=== PATIENT | male | born 1935 | race Caucasian/White ===

== ENCOUNTER 2017-09-15 06:01 | Observation (INO) | payer OTHER, MEDICARE ==
[~2017-09-15] VITALS: Ht 175.3 cm; Wt 99.8 kg
[~2017-09-15 06:01] MED LIST: AMOXIL500 MG PO; BACTRIM DS 8001 TAB PO; LOVASTATIN40 M1 PO; METOPROLOL SUC100 M2 PO; NEXIUM 40MG40 MG PO; NYSTATIN100000 U/2 TOP
--- NOTE | 2017-09-15 06:10 | ED CARDIAC/CP/PALPITATIONS ---
See Addendum History of Present Illness General Chief Complaint: Chest Pain Stated Complaint: "CP" Source: patient, family Exam Limitations: no limitations Vital Signs & Intake/Output Vital Signs & Intake/Output Vital Signs Date Time Temp Pulse Resp B/P B/P Pulse O2 O2 Flow FiO2 Mean Ox Delivery Rate 09/15 0649 97 Room Air 09/15 627 96.8 63 18 150/59 96 Room Air Allergies Coded Allergies: NO KNOWN ALLERGIES (05/06/11) Reconcile Medications Amoxicillin (Amoxil) 500 MG CAP 1 TAB PO BID CELLULITIIS Esomeprazole (Nexium) 40 MG CAP 1 CAP PO DAILY GI (Reported) Lovastatin 40 MG TAB 1 TAB PO DAILY CHOLESTEROL (Reported) with food Metoprolol Succinate (Metoprolol Succinate XL) [address] 1 TAB PO DAILY HEART (Reported) Nystatin 100,000 U/GM POW 1 WALT TOP BID YEAST INFECTION apply to affected area(s) Sulfamethoxazole/Trimethopri (Bactrim Ds 800 MG-160 MG) 1 TAB TAB 1 TAB PO BID ABSCESS Sulfamethoxazole/Trimethopri (Bactrim Ds 800 MG-160 MG) 1 TAB TAB 1 TAB PO BID CELLULITIS Triage Nurses Notes Reviewed? yes Onset: Gradual Duration: hour(s): Timing: recent history Location: central Radiation: no radiation Activities at Onset: rest Prior Chest Pain/Card Workup: angina Modifying Factors: Improves With: nitroglycerin. Nitro Today/Relief: complete relief Aspirin Today: no aspirin today Associated Symptoms: CHEST PAIN HPI: 82 yo gentleman h/o hyperlipidemia, also with nitro for possible angina, presents with intermittent 5/10 substernal chest pain that began yesterday evening. "I would take a few sprays of the nitro and the pain would go away for a few hours and then I'd have to take some more." He notes, at present, that he is chest pain free. He has no increased lower extremity swelling, diaphoresis, chills, shortness of breath, dizziness, syncopal symptoms. He is otherwise well. Past History Travel History Traveled to [place] past 21 day No Medical History Any Pertinent Medical History? see below for history Neurological: NONE EENT: NONE Cardiovascular: hyperlipidemia Respiratory: obstructive sleep apnea Gastrointestinal: GERD Hepatic: NONE Renal: NONE Musculoskeletal: NONE Psychiatric: NONE Endocrine: NONE Blood Disorders: NONE Cancer(s): NONE KILN MAINTENANCE/Reproductive: NONE Surgical History Surgical History: N Psychosocial History Who do you live with Spouse What is your primary language [place] Family History Hx Contributory? No Review of Systems Review of Systems Constitutional: Reports: no symptoms. EENTM: Reports: no symptoms. Respiratory: Reports: no symptoms. Cardiovascular: Reports: no symptoms. GI: Reports: no symptoms. Genitourinary: Reports: no symptoms. Musculoskeletal: Reports: no symptoms. Skin: Reports: no symptoms. Neurological/Psychological: Reports: no symptoms. Hematologic/Endocrine: Reports: no symptoms. Immunologic/Allergic: Reports: no symptoms. All Other Systems: Reviewed and Negative Physical Exam Physical Exam General Appearance: well developed/nourished, no apparent distress Head: atraumatic, normal appearance Eyes: Bilateral: normal appearance. Ears, Nose, Throat: normal pharynx, normal ENT inspection Neck: normal inspection, supple, full range of motion Respiratory: normal breath sounds, chest non-tender, no respiratory distress, quiet respiration, lungs clear Cardiovascular: regular rate/rhythm Gastrointestinal: normal bowel sounds, soft, non-tender Back: normal inspection, normal range of motion Extremities: normal inspection, normal capillary refill, normal range of motion Neurologic/Psych: no motor/sensory deficits, awake, alert, oriented x 3 Skin: intact, normal color, warm/dry Core Measures ACS in differential dx? No CVA/TIA Diagnosis No Sepsis Present: No Sepsis Focused Exam Completed? No Progress Differential Diagnosis: AMI, unstable angina Plan of Care: Orders Procedure Date/time Status TROPONIN LEVEL 09/15 0610 Active PARTIAL THROMBOPLASTIN TIME 09/15 06 Active PROTHROMBIN TIME 09/15 0610 Active D-DIMER 09/15 06 Active COMPREHENSIVE METABOLIC PANEL 09/15 0610 Active CBC WITHOUT DIFFERENTIAL 09/15 0610 Active B-TYPE NATRIURETIC PEP (BNP) 09/15 06 Active EKG 09/15 0603 Active Laboratory Tests 09/15/17 0635: Sodium Pending, Potassium Pending, Chloride Pending, Carbon Dioxide Pending, Anion Gap Pending, BUN Pending, Creatinine Pending, BUN/Creatinine Ratio Pending , Glucose Pending, Calcium Pending, Total Bilirubin Pending, AST Pending, ALT Pending, Alkaline Phosphatase Pending, Troponin I Pending, Twe-P-Xjtrvtbxnfl Pept Pending, Total Protein Pending, Albumin Pending, Globulin Pending, Albumin/ Globulin Ratio Pending, PT Pending, INR Pending, APTT Pending, D-Dimer High Sensitivty Pending, CBC w Diff Pending, WBC Pending, RBC Pending, Hgb Pending, Hct Pending, MCV Pending, MCH Pending, RDW Pending, Plt Count Pending, MPV Pending, PUBS MCHC Pending Diagnostic Imaging: Viewed by Me: Radiology Read. Discussed w/RAD: Radiology Read. Initial ED EKst degree av block... no acute change from prior. Hand-Off Endorsed To: Daniel Iraheta DO Endorsed Time: 0700 Pending: labs, Xray Departure Departure Disposition: STILL A PATIENT Condition: Stable Clinical Impression Primary Impression: Chest pain Referrals: Alvarenga Dipak BELLO (PCP/Family) Departure Forms: Customer Survey General Discharge Information Comments 09/15/17, 7am... pt is chest pain free in ED. non acute ekg... labs pending... pt signed out to dr. iraheta. Critical Care Note Critical Care Note Critical Care Time: non-applicable
[2017-09-15 06:54] LABS: ABSOLUTE BASOPHIL COUNT 0 /CUMM (0.0-0.2); ABSOLUTE EOSINOPHIL COUNT 0.2 /CUMM (0.0-0.7); ABSOLUTE GRANULOCYTE CT 6.1 /CUMM (1.4-6.5); ABSOLUTE LYMPH COUNT 1.1 /CUMM (1.2-3.4); ABSOLUTE MONOCYTE COUNT 0.5 /CUMM (0.10-0.60); BASOPHIL % 0.3 % (0.0-2.0); EOSINOPHIL % 2.1 % (0-5); GRANULOCYTE % 76.8 % (42.2-75.2); MEAN CORPUSCULAR HGB 31.5 PG (27.0-31.0); MEAN CORPUSCULAR HGB CONC 33.5 G/DL (33.0-37.0); MEAN CORPUSCULAR VOLUME 94.1 FL (80.0-94.0); MEAN PLATELET VOLUME 8.1 FL (7.4-10.4); PLATELET COUNT 159 /CUMM (130-400); RBC DISTRIBUTION WIDTH 13.3 % (11.5-14.5); RED BLOOD CELL CT 4.57 /CUMM (4.70-6.10); WHITE BLOOD CELL COUNT 7.9 /CUMM (4.8-10.8)
--- NOTE | 2017-09-15 06:54 | RADIOLOGY REPORT ---
EXAMINATION: XR PORTABLE CHEST CLINICAL INFORMATION: Dyspnea. Chest pain. COMPARISON: 05/06/2011 TECHNIQUE: Portable frontal view of the chest was obtained. FINDINGS: The lungs are well expanded. There is no consolidation, edema, or effusion. No pneumothorax. The cardiomediastinal silhouette is unchanged, with a tortuous and calcified aorta. Scoliotic curvature of the spine. IMPRESSION: No acute pulmonary findings.
[2017-09-15 06:59] LABS: PT 11.4 SEC (9.4-12.5); PTT 31 SEC (25-37)
[2017-09-15] MEDS ORDERED: ASPIRIN EC81 M1 PO (08:11)
--- NOTE | 2017-09-15 12:02 | History & Physical ---
Bryce BELLO,Shauna 09/15/17 1202: General Information and HPI MD Statement: I have seen and personally examined ISIS CANTU and documented this H&P. The patient is a 82 year old M who presented with a patient stated chief complaint of [chest pain]. Source of Information: patient, family, old records Exam Limitations: unable to give history History of Present Illness: This is a 82 yo gentleman with PMH of CAD s/p RCA stent (around 2001 per family) , GERD, HTN, HLD, TARA not on CPAP, who comes in with CC of chest pain. Pt states that around 9:30 pm lastnight when he was getting into bed he experienced an episode of chest pain. He describes the pain in a band like distribution across his chest under his sternum. At its peak the pain is a 8/10 squeezing sensation that does not radiate to his jaw or left hand. He states the pain is neither positional or exertional. He only noticed it while laying in bed. It is not associated with palpitaitons or SOB. He took two sprays of nitro and pain remitted. Subsequently, he dozed off and woke up again at 11:30pm with same pain which remitted with nitro. After sleeping the sensation woke him up for a third time around 1:30 am and decided to bring pt to hospital as she was concerned about frequency of chest pain. He has had similar episodes of cp before that remitted with nitro. They usually occur every few months or so and are not associated with exertion. He usually takes nitro with complete resolution of episode. Denies DODSON,Dizziness, N/V/D/palpitations, SOB, abd pain, hematochezia, or melena. Does endorse chest pain, GERD and constipation. He was seen at in 2010 for an episode of CP. At that time he had IV dipyramidole stress test which showed baseline EKG changes with out evidence of stress induced myocardial ischemia. Pt follows Dr. Perez outpatient. He currently takes ASA 81, Lovastatin, Metop succ 100 daily and is compliant with regimen. He has remote hx of smoking (1.5 ppd for 30 yrs but quit 30 yrs ago), drinks 2 oz of Cas Mckeon nightly without hx of etoh withdrawl and denies any IVDA Allergies/Medications Allergies: Coded Allergies: NO KNOWN ALLERGIES (05/06/11) Home Med list Aspirin (Ecotrin*) 81 MG TABLET.DR 1 TAB PO DAILY HEART HEALTH (Reported) Lovastatin 40 MG TABLET 1 TAB PO DAILY CHOLESTEROL (Reported) with food Metoprolol Succinate 100 MG TAB.ER.24H 1 TAB PO DAILY HEART (Reported) Compliance With Home Meds: GOOD Past History Travel History Traveled to [place] past 21 day No Medical History Neurological: NONE EENT: NONE Cardiovascular: hyperlipidemia, myocardial infarction Respiratory: obstructive sleep apnea Gastrointestinal: GERD Hepatic: NONE Renal: NONE Musculoskeletal: NONE Psychiatric: NONE Endocrine: NONE Blood Disorders: NONE Cancer(s): NONE [employer]ION/Reproductive: NONE Surgical History Surgical History: N Past Family/Social History Psychosocial History ETOH Use: denies use Illicit Drug Use: denies illicit drug use Review of Systems Review of Systems Constitutional: Reports: see HPI. Exam & Diagnostic Data Last 24 Hrs of Vital Signs/I&O Vital Signs Date Time Temp Pulse Resp B/P B/P Pulse O2 O2 Flow FiO2 Mean Ox Delivery Rate 09/15 1434 98.0 60 18 170/80 97 Room Air 09/15 1432 98.0 60 18 170/80 09/15 1354 97 Room Air 09/15 1341 97.6 59 18 184/81 97 Room Air 09/15 1205 98.3 60 18 172/75 97 09/15 0934 97.0 55 18 181/81 98 Room Air 09/15 0818 97.1 57 16 177/75 97 Room Air 09/15 0649 97 Room Air 09/15 0628 96.8 63 18 150/59 96 Room Air Intake & Output 09/15 1600 09/15 0800 09/15 0000 Intake Total 720 0 Output Total Balance 720 0 Intake, Oral 720 0 Patient 99.79 kg 99.79 kg Weight Physical Exam General Appearance Alert, Oriented X3, Cooperative, No Acute Distress Skin No Significant Lesion HEENT Atraumatic, EOMI, Mucous Membr. moist/pink Neck Supple, No JVD Cardiovascular Normal S1, Normal S2, No Murmurs, bradycardic Lungs Normal Air Movement Abdomen Soft, No Tenderness, + bs; obese Neurological Normal Speech, Sensation Intact, Cranial Nerves 3-12 NL Extremities No Edema Last 24 Hrs of Labs/Elton: Laboratory Tests 09/15/17 1332: Troponin I 0.10 09/15/17 0635: Anion Gap 10, Estimated GFR > 60, BUN/Creatinine Ratio 23.3, Glucose 128 H, Calcium 8.7, Total Bilirubin 0.5, AST 47, ALT 53, Alkaline Phosphatase 209 H, Troponin I 0.07, Hul-V-Akdivyopzix Pept 368 H, Total Protein 6.5, Albumin 3.6, Globulin 2.9, Albumin/Globulin Ratio 1.2, PT 11.4, INR 1.09, APTT 31, D-Dimer High Sensitivty < 200, CBC w Diff NO MAN DIFF REQ, RBC 4.57 L, MCV 94.1 H, MCH 31.5 H, RDW 13.3, MPV 8.1, Gran % 76.8 H, Lymphocytes % 14.1 L, Monocytes % 6.7, Eosinophils % 2.1, Basophils % 0.3, Absolute Granulocytes 6.1, Absolute Lymphocytes 1.1 L, Absolute Monocytes 0.5, Absolute Eosinophils 0.2, Absolute Basophils 0, PUBS MCHC 33.5 Assessment/Plan Assessment: ASSESSMENT: This is a 82 yo gentleman with PMH of CAD s/p RCA stent (around 2001 per family), GERD, HTN, HLD, TARA not on CPAP, who comes in with CC of atypical chest pain that remits with nitro. His FRANKY score is 3 (+ age> 65, known CAD, ASA use) giving him 13% risk of 14 day mortality. Pt admitted to [facility] for ACS rule out. EKG shows: NSR with rate 63 and first degree AV block. Notably, lateral leads show evidence of Q waves and poor R wave progression. aVL has flipped T wave. --- PLAN: 1.CAD/Chest pain: Pt has hx of CAD s/p RCA stent, but stress test in 2010 negative for stress induced myocardial ischemia. His EKG today does show evidence of old infarct and aVL does show flipped T-wave. His CP does remit with nitro and his presentation is concerning for intermediate risk of ACS (EKG with Qwv, >70 yo, chest pain with nml bio markers). * EKG trop now * EKG trop 7:30 * Con't home statin * nitro paste q6 prn chest pain * Appreciate cardiology recs * Con't Beta marlen (See below) * Morphine on for pain * O2 to maintain sats > 92% 2. First degree AV block: EKG showed evidence of 1st degree heart block which seems new compared to his old 2011 EKG. He takes metoprolol at home which is AV blocking agent. * Re-assess BB 3. Hypertension: Pt is only on Metop succinate 100mg daily at home. His BP up to 180 systolic in ED. After speaking with attending it was decided that pt would benefit from beta marlen for CAD but that it would do little for his HTN. As such, will switch his long acting beta marlen to short acting into two divided doses and add ACEi to his regimen. * Switched Metrop succ 100mg bid to Metop tartrate 50mg BID. He will need re- eval of his beta marlen regimen prior to d/c * Started pt on Lisinopril 10mg daily. * Monitor renal function given start of ACEi * Monitor pt BP on new regimen 4. GERD: * Con't home PPI FC Chem dvt ppx Heart Healthy diet. As Ranked By This Provider Problem List: 1. CHEST PAIN TO R/O ACS/UA/IHD 2. GERD Observation Initial Note - I have personally examined ISIS CANTU on 09/15/17 at 1621. The disposition of ISIS CANTU is uncertain at this time and before a determination can be made, he requires a period of observation for the following reasons [ chest pain rule out] Core Measures/Misc (05/18) Acute Coronary Syndrome ACS Diagnosis: No Congestive Heart Failure Congestive Heart Failure Diagnosis No Cerebrovascular Accident CVA/TIA Diagnosis: No VTE (View Protocol) VTE Risk Factors Acute Medical Illness No Mechanical VTE Prophylaxis d/t N/A MechProphylax Ordered No VTE Pharm Prophylaxis d/t NA PharmProphylax ordered Sepsis (View protocol) Sepsis Present: No Jhonathan Spear MD 09/15/17 1851: Attending Review Statement Attending Statement Attending MD Statement: examined this patient, discuss w/resident/PA/BAG WORKER, agreed w/resident/PA/BAG WORKER, discussed with family, reviewed EMR data (avail), discussed with nursing, reviewed images, amended to note Attending Assessment/Plan: Agree with house staff noted above. 82-year-old male with history of CAD, status post RCA stent presenting with chest discomfort which has been intermittent over the past few days. Review of systems: No fever. No chills. No rash. No tremor. All other systems were reviewed, and were noted to be negative. Physical examination: Gen: The patient is in no acute distress HEENT: Normal nose, ears, and oropharynx. Pupils equal bilaterally. Conjunctiva normal. Neck: Supple with no JVD, no masses, and no thyromegaly Lungs: Clear to auscultation with normal respiratory effort Heart: RRR, S1, S2, no murmurs. No peripheral edema, 2+ pulses in the lower extremities bilaterally Abdomen: Soft, nontender, no masses. No hepatomegaly. No splenomegaly Extremities: No clubbing or cyanosis. Normal muscle strength in the upper and lower extremities Skin: Normal skin turgor with no skin ulcers or lesions noted. Neuro: Cranial nerves intact. Sensation intact Psych: Alert and oriented 3 with appropriate affect EKG tracing is independently reviewed, and reveals normal sinus rhythm at 62, left axis deviation, left internal hypertrophy, septal infarct age undetermined Chest x-ray: The lungs are well expanded. There is no consolidation, edema, or effusion. No pneumothorax. The cardiomediastinal silhouette is unchanged, with a tortuous and calcified aorta. Scoliotic curvature of the spine. Assessment: 1. History of CAD 2. Hypertension, uncontrolled 3. Chest pain, possible acute coronary syndrome Recommendations: * Monitor on telemetry. * Check serial troponin * Continue metoprolol * Continue aspirin * Add lisinopril for additional blood pressure control * Nitroglycerin paste * Sublingual nitroglycerin p.r.n. * NPO after midnight for possible nuclear stress test versus cardiac catheterization
[2017-09-15 22:01] VITALS: BP 160/90
--- NOTE | 2017-09-16 03:20 | Event Note ---
Event Note Event Note: Patient continued having chest pain not being releived with nitro and morphine. Repeat EKG done at 2:30AM showing ST depressions Stool guiac done - negative Dr. Spear made aware of situation Patient started on IV heparin and gave morphine for pain Patient is currently NPO for possible cath in AM Stat Trop level pending (previous trops trending up with last at 0.15)
[2017-09-16 06:41] VITALS: BP 152/76
--- NOTE | 2017-09-16 07:39 | Discharge Summary ---
Visit Information Visit Dates Admission Date: 09/15/17 Discharge Date: 09/16/2017 Hospital Course Course Attending Physician: Dr. Spear Primary Care Physician: Dipak Alvarenga MD Hospital Course: This is a 82 yo gentleman past medical history significant for CAD s/p RCA stent (around 2001 per family), GERD, HTN, HLD, TARA not on CPAP, who presented to the hospital with chief complaint of of atypical chest pain that remitted with nitro. EKG on admission showed: NSR with rate 63 and first degree AV block. Notably, lateral leads showed evidence of Q waves and poor R wave progression. aVL had flipped T wave. The following problems were addressed during the course of his hospital stay: #CAD/Chest pain: The patient has history of of CAD s/p RCA stent, but stress test in 2010 was reported to be negative for stress induced myocardial ischemia. 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 The patient was monitored on telemetry. Troponins trended up 0.1> 0.15>0.14> 0.36. EKG revealed ST depression in lead 1, aVL, V2V6.He was started on IV heparin. He was maintained on statin, nitro,beta marlen. He also received morphine for chest pain. This morning, he still reports chest pain however improved. He was seen by attending reports analyst who decided to transfer the patient to the hospital for cardiac catheterization, he also wants to continue IV heparin upon discharge while the patient is being transferred and on route to [facility]. #First degree AV block: EKG showed evidence of 1st degree heart block which seemed new compared to his old 2011 EKG. he was monitored on telemetry closely. His home medication of metoprolol succinate 100 mg daily was changed to metoprolol titrate 50 mg twice a day. #Hypertension: The patient was only on metoprolol succinate 100mg daily at home. On admission, his blood pressure was elevated to 180 systolic in ED. After speaking with attending it was decided that pt would benefit from beta marlen for CAD but that it would do little for his HTN. As such, Laura H his long acting beta marlen to short acting into two divided doses and add ACEi to his regimen.He was started on Lisinopril 10mg daily. Needs close monitoring of renal function as he was started on ACEi. #GERD: We continued home PPI #DVT prophylaxis: On IV heparin #Patient is full code. Allergies: Coded Allergies: NO KNOWN ALLERGIES (05/06/11) Pertinent Lab Results: Laboratory Tests 09/16 09/16 09/16 0926 0830 0632 Chemistry Sodium (137 - 145 mmol/L) 144 Potassium (3.5 - 5.1 mmol/L) 4.4 Chloride (98 - 107 mmol/L) 103 Carbon Dioxide (22 - 30 mmol/L) 30 Anion Gap (5 - 16) 11 BUN (9 - 20 mg/dL) 19 Creatinine (0.7 - 1.2 mg/dL) 0.8 Estimated GFR (>60 ml/min) > 60 BUN/Creatinine Ratio (7 - 25 %) 23.8 Troponin I (<0.11 ng/ml) Cancelled Cancelled 0.36 *H Coagulation APTT (25 - 37 SEC) 48 H Hematology CBC w Diff NO MAN DIFF REQ WBC (4.8 - 10.8 /CUMM) 11.7 H RBC (4.70 - 6.10 /CUMM) 4.61 L Hgb (14.0 - 18.0 G/DL) 14.6 Hct (42 - 52 %) 43.7 MCV (80.0 - 94.0 FL) 95.0 H MCH (27.0 - 31.0 PG) 31.6 H RDW (11.5 - 14.5 %) 13.8 Plt Count (130 - 400 /CUMM) 192 MPV (7.4 - 10.4 FL) 8.6 Gran % (42.2 - 75.2 %) 79.7 H Lymphocytes % (20.5 - 51.1 %) 13.4 L Monocytes % (1.7 - 9.3 %) 6.0 Eosinophils % (0 - 5 %) 0.6 Basophils % (0.0 - 2.0 %) 0.3 Absolute Granulocytes (1.4 - 6.5 /CUMM) 9.3 H Absolute Lymphocytes (1.2 - 3.4 /CUMM) 1.6 Absolute Monocytes (0.10 - 0.60 /CUMM) 0.7 H Absolute Eosinophils (0.0 - 0.7 /CUMM) 0.1 Absolute Basophils (0.0 - 0.2 /CUMM) 0 PUBS MCHC (33.0 - 37.0 G/DL) 33.3 09/16 09/16 09/15 09/15 0245 0212 [id number] Chemistry Troponin I (<0.11 ng/ml) 0.14 *H Cancelled 0.15 *H 0.10 09/15 0635 Chemistry Sodium (137 - 145 mmol/L) 144 Potassium (3.5 - 5.1 mmol/L) 4.3 Chloride (98 - 107 mmol/L) 106 Carbon Dioxide (22 - 30 mmol/L) 27 Anion Gap (5 - 16) 10 BUN (9 - 20 mg/dL) 21 H Creatinine (0.7 - 1.2 mg/dL) 0.9 Estimated GFR (>60 ml/min) > 60 BUN/Creatinine Ratio (7 - 25 %) 23.3 Glucose (65 - 99 mg/dL) 128 H Calcium (8.4 - 10.2 mg/dL) 8.7 Total Bilirubin (0.2 - 1.3 mg/dL) 0.5 AST (17 - 59 U/L) 47 ALT (21 - 72 U/L) 53 Alkaline Phosphatase (< 127 U/L) 209 H Troponin I (<0.11 ng/ml) 0.07 [id number] Pept (<125 pg/mL) 368 H Total Protein (6.3 - 8.2 g/dL) 6.5 Albumin (3.5 - 5.0 g/dL) 3.6 Globulin (1.9 - 4.2 gm/dL) 2.9 Albumin/Globulin Ratio (1.1 - 2.2 %) 1.2 Coagulation PT (9.4 - 12.5 SEC) 11.4 INR (0.90 - 1.17) 1.09 APTT (25 - 37 SEC) 31 D-Dimer High Sensitivty (0 - 243 ng/ml) < 200 Hematology CBC w Diff NO MAN DIFF REQ WBC (4.8 - 10.8 /CUMM) 7.9 RBC (4.70 - 6.10 /CUMM) 4.57 L Hgb (14.0 - 18.0 G/DL) 14.4 Hct (42 - 52 %) 43.0 MCV (80.0 - 94.0 FL) 94.1 H MCH (27.0 - 31.0 PG) 31.5 H RDW (11.5 - 14.5 %) 13.3 Plt Count (130 - 400 /CUMM) 159 MPV (7.4 - 10.4 FL) 8.1 Gran % (42.2 - 75.2 %) 76.8 H Lymphocytes % (20.5 - 51.1 %) 14.1 L Monocytes % (1.7 - 9.3 %) 6.7 Eosinophils % (0 - 5 %) 2.1 Basophils % (0.0 - 2.0 %) 0.3 Absolute Granulocytes (1.4 - 6.5 /CUMM) 6.1 Absolute Lymphocytes (1.2 - 3.4 /CUMM) 1.1 L Absolute Monocytes (0.10 - 0.60 /CUMM) 0.5 Absolute Eosinophils (0.0 - 0.7 /CUMM) 0.2 Absolute Basophils (0.0 - 0.2 /CUMM) 0 PUBS MCHC (33.0 - 37.0 G/DL) 33.5 Disposition Summary Disposition Principal Diagnosis: NSTEMI Additional Diagnosis: 1st degree AV block HTN Discharge Disposition: other general hospital Discharge Instructions General Discharge Information Code Status: Full Code Patient's Diet: NPO Patient's Activity: As tolerated Follow-Up Instructions/Appts: -Please follow-up with your PCP within a week of discharge. -Please follow-up with your reports analyst, Dr. Perez regarding a week of discharge. -Please return to the hospital if your symptoms not improve/worsen. Medications at Discharge Discharge Medications: Stop taking the following medications: Lovastatin (Lovastatin) 40 MG TABLET ORAL DAILY Metoprolol Succinate (Metoprolol Succinate) 100 MG TAB.ER.24H ORAL DAILY Continue taking these medications: Aspirin (Ecotrin*) 81 MG TABLET.DR 1 Tablet ORAL DAILY Comments: Last Taken: 09/16/17 Time: 11AM Start taking the following new medications: Heparin Sod,Porcine/0.9 % NaCl (Heparin 2,500 Unit/500 Ml-Ns) 2,500 UNIT/500 ML (5 UNIT/ML) IV.SOLN 0 INTRAVEN SEE INSTRUCTIONS Qty = 1 No Refills Instructions: Per protocol PTT REPEAT BOLUS STOP CHANGE <45 60U/KG 0 INCREASE 4 U/KG/HR 45-60 30U/KG 0 INCREASE 2 U/KG/HR 61-90 0 0 NO CHANGE 91-100 0 0 DECREASE 2 U/KG/HR >100 0 60 DECREASE 4U/KG/HR Atorvastatin Calcium (Atorvastatin Calcium) 80 MG TABLET 1 Tablet ORAL 5 PM Qty = 30 No Refills Comments: Last Taken: 09/16/17 Time: 6AM Nitroglycerin (Nitro-Bid) 2 % OINT...G. 0.5 Gram On the skin EVERY SIX HOURS Qty = 1 No Refills Comments: Last Taken: 09/16/17 Time: 11AM Metoprolol Tartrate (Metoprolol Tartrate) 50 MG TABLET 1 Tablet ORAL TWICE DAILY Qty = 60 No Refills Comments: Last Taken: 09/16/17 Time: 11AM Lisinopril (Lisinopril) 10 MG TABLET 1 Milligram ORAL DAILY Qty = 30 No Refills Comments: Last Taken: 09/16/17 Time: 11AM Omeprazole (Omeprazole) 20 MG CAPSULE.DR 1 Tablet ORAL DAILY BEFORE BREAKFAST as needed for GERD Qty = 30 No Refills Comments: NOT GIVEN IN HOSPITAL Copies To: Rachel Perez MD
[2017-09-16 07:44] LABS: ABSOLUTE BASOPHIL COUNT 0 /CUMM (0.0-0.2); ABSOLUTE EOSINOPHIL COUNT 0.1 /CUMM (0.0-0.7); ABSOLUTE GRANULOCYTE CT 9.3 /CUMM (1.4-6.5); ABSOLUTE LYMPH COUNT 1.6 /CUMM (1.2-3.4); ABSOLUTE MONOCYTE COUNT 0.7 /CUMM (0.10-0.60); BASOPHIL % 0.3 % (0.0-2.0); EOSINOPHIL % 0.6 % (0-5); GRANULOCYTE % 79.7 % (42.2-75.2); HEMATOCRIT 43.7 % (42-52); MEAN CORPUSCULAR HGB 31.6 PG (27.0-31.0); MEAN CORPUSCULAR HGB CONC 33.3 G/DL (33.0-37.0); MEAN PLATELET VOLUME 8.6 FL (7.4-10.4); PLATELET COUNT 192 /CUMM (130-400); RBC DISTRIBUTION WIDTH 13.8 % (11.5-14.5); RED BLOOD CELL CT 4.61 /CUMM (4.70-6.10); WHITE BLOOD CELL COUNT 11.7 /CUMM (4.8-10.8)
[2017-09-16 07:57] LABS: PTT 48 SEC (25-37)
--- NOTE | 2017-09-16 08:14 | PN- Housestaff ---
Subjective Follow-up For: CAD/Chest pain First degree AV block Tele-Events Since Last Visit: SR, SB, 1st AVB Subjective: The patient was seen and examined. He reports that his chest pain has much improved compared to last night. Now is 10, substernal, nonradiating. he denies any dizziness, lightheadedness, shortness of breath, nausea, vomiting, abdominal pain, urinary symptoms. Patient's is present at bedside. The patient was evaluated by early in the morning, arrangements being made by Dr. Spear to transfer for cardiac cath to [facility]. Review of Systems Constitutional: Reports: see HPI. Objective Last 24 Hrs of Vital Signs/I&O Vital Signs Date Time Temp Pulse Resp B/P B/P Pulse O2 O2 Flow FiO2 Mean Ox Delivery Rate 09/16 1116 66 142/68 09/16 1111 66 142/68 09/16 1110 66 142/68 09/16 0800 97 Nasal 2.0L Cannula 09/16 0641 97.7 63 18 152/76 96 Room Air 09/16 0000 Nasal Cannula 09/15 2201 97.9 62 18 160/90 97 Intake & Output 09/16 1600 09/16 0800 09/16 0000 Intake Total 60 200 Output Total 425 Balance -365 200 Intake, Oral 60 200 Output, Urine 425 Patient 220 lb Weight Physical Exam General Appearance: Alert, Oriented X3, Cooperative, No Acute Distress Skin: No Rashes, No Breakdown, No Significant Lesion HEENT: Atraumatic, PERRLA, EOMI, Mucous Membr. moist/pink Neck: Supple, No JVD, No thryomegaly, +2 Carotid Pulse wo Bruit, No LAD Lymphatic: Cervical nl Cardiovascular: Regular Rate, Normal S1, Normal S2, No Murmurs, Gallops, Rubs Lungs: Clear to Auscultation, Normal Air Movement Abdomen: Normal Bowel Sounds, Soft, No Tenderness, No Hepatospenomegaly, No Masses Neurological: Normal Speech, Strength at 5/5 X4 Ext, Normal Tone, Sensation Intact Extremities: LE edema BL Vascular: Normal Pulses, Pulses Symmetrical Current Medications: Current Medications Sig/Nadir Start time Last Medication Dose Route Stop Time Status Admin Acetaminophen 650 MG Q6P PRN 09/15 1300 AC 09/16 PO 0637 Acetaminophen 1,000 MG Q6P PRN 09/15 1300 AC 09/16 IV 0054 Aspirin Buffered 81 MG DAILY 09/16 1000 AC PO Atorvastatin Calcium 80 MG 1700 09/16 0300 AC 09/16 PO 0618 Atorvastatin Calcium 10 MG 1700 09/15 1700 AC 09/15 PO 1735 Enoxaparin Sodium 40 MG DAILY 09/16 1000 CAN SC Heparin Sodium 3,000 UNIT ONCE ONE 09/16 1400 AC (Porcine) IV 09/16 1401 Heparin Sodium 25,000 UNIT Q24H 09/16 0300 AC 09/16 (Porcine) IV 0359 Sodium Chloride 500 ML Lisinopril 10 MG DAILY 09/15 1330 AC 09/15 PO 1432 Metoprolol Succinate 100 MG DAILY 09/15 1153 DC PO Metoprolol Tartrate 50 MG BID 09/15 1329 AC 09/15 PO 2308 Morphine Sulfate 2 MG ONCE ONE 09/16 0300 DC 09/16 IV 09/16 0301 0323 Morphine Sulfate 2 MG Q4P PRN 09/15 1300 AC IV Nitroglycerin 0.4 MG Q6 09/15 2359 CAN SL Nitroglycerin 0.5 GM Q6 09/15 2359 AC 09/16 TOP 0619 Nitroglycerin 0.5 GM Q6 09/15 1800 CAN TOP Nitroglycerin 1 GM ONCE ONE 09/15 1615 DC 09/15 TOP 09/15 1616 1605 Nitroglycerin 0 .STK-MED ONE 09/15 1602 DC TOP Nitroglycerin 0.4 MG ONCE ONE 09/15 1545 DC 09/15 SL 09/15 1546 1548 Nitroglycerin 0.4 MG Q6 PRN 09/15 1315 DC SL Omeprazole 20 MG DAILY AC PRN 09/15 1315 AC PO Last 24 Hrs of Lab/Elton Results Last 24 Hrs of Labs/Mics: Laboratory Tests 09/16/17 1400: APTT Cancelled 09/16/17 1400: APTT Cancelled 09/16/17 0926: Troponin I Cancelled 09/16/17 0830: Troponin I Cancelled 09/16/17 0632: Anion Gap 11, Estimated GFR > 60, BUN/Creatinine Ratio 23.8, Troponin I 0.36 *H, APTT 48 H, CBC w Diff NO MAN DIFF REQ, RBC 4.61 L, MCV 95.0 H, MCH 31.6 H, RDW 13.8, MPV 8.6, Gran % 79.7 H, Lymphocytes % 13.4 L, Monocytes % 6.0, Eosinophils % 0.6, Basophils % 0.3, Absolute Granulocytes 9.3 H, Absolute Lymphocytes 1.6, Absolute Monocytes 0.7 H, Absolute Eosinophils 0.1, Absolute Basophils 0, PUBS MCHC 33.3 09/16/17 0245: Troponin I 0.14 *H 09/16/17 0217: Troponin I Cancelled 09/15/17 2245: Troponin I 0.15 *H Assessment/Plan Assessment: This is a 82 yo gentleman past medical history significant for CAD s/p RCA stent (around 2001 per family), GERD, HTN, HLD, TARA not on CPAP, who presented to the hospital with chief complaint of of atypical chest pain that remitted with nitro. EKG on admission showed: NSR with rate 63 and first degree AV block. Notably, lateral leads showed evidence of Q waves and poor R wave progression. aVL had flipped T wave. Impression/plan: #CAD/Chest pain: The patient has history of of CAD s/p RCA stent, but stress test in 2010 was reported to be negative for stress induced myocardial ischemia. 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 * The patient was monitored on telemetry. * Troponins trended up 0.1> 0.15>0.14> 0.36. EKG revealed ST depression in lead 1, aVL, V2V6. * He was started on IV heparin. * He was maintained on statin, nitro,beta marlen. He also received morphine for chest pain. This morning, he still reports chest pain however improved. * He was seen by attending compressor repairer who decided to transfer the patient to the hospital for cardiac catheterization, he also wants to continue IV heparin upon discharge while the patient is being transferred and on route to [facility]. #First degree AV block: * EKG showed evidence of 1st degree heart block which seemed new compared to his old 2011 EKG. * SB w/occasional AVB noted on piece marker small arms * His home medication of metoprolol succinate 100 mg daily was changed to metoprolol titrate 50 mg twice a day. #Hypertension: The patient was only on metoprolol succinate 100mg daily at home. On admission, his blood pressure was elevated to 180 systolic in ED. After speaking with attending it was decided that pt would benefit from beta marlen for CAD but that it would do little for his HTN. As such, long acting beta marlen was changed to short acting into two divided doses and ACEi was added to his regimen.He was started on Lisinopril 10mg daily. * Needs close monitoring of renal function as he was started on ACEi. #GERD: * C/w home PPI #DVT prophylaxis: On IV heparin #Patient is full code. Problem List: 1. Chest pain Pain Ratin Pain Location: Chest Pain Goal: Pain 4 or less Pain Plan: IV morphin Nitro Tomorrow's Labs & Rationales: None
--- NOTE | 2017-09-16 10:01 | Patient Discharge Instructions ---
Discharge Instructions General Discharge Information Special Instructions: -Please follow-up with your PCP within a week of discharge. -Please follow-up with your neurosurgery physician, Dr. Perez regarding a week of discharge. -Please return to the hospital if your symptoms not improve/worsen. Diet Recommended Diet: NPO Activity Additional ACTIVITY Info: As tolerated Acute Coronary Syndrome Inclusion Criteria At DC or during hospital stay patient has or had the following: ACS DIAGNOSIS Yes Discharge Core Measures Meds if any: Prescribed or Continued at Discharge HAILE/ARB if EF <40% Yes Aspirin Yes Beta-Kate Yes Statin Yes Meds if any: NOT Prescribed or Continued at Discharge Congestive Heart Failure Inclusion Criteria At DC or during hospital stay patient has or had the following: CHF DIAGNOSIS No Discharge Core Measures Meds if any: Prescribed or Continued at Discharge Meds if any: NOT Prescribed or Continued at Discharge Cerebrovascular accident Inclusion Criteria At DC or during hospital stay patient has or had the following: CVA/TIA Diagnosis No Discharge Core Measures Meds if any: Prescribed or Continued at Discharge Meds if any: NOT Prescribed or Continued at Discharge Venous thromboembolism Inclusion Criteria VTE Diagnosis No VTE Type NONE VTE Confirmed by (Test) NONE Discharge Core Measures - Per Current guidelines, there needs to be overlap - treatment for the first 5 days of Warfarin therapy. - If discharged on Warfarin prior to 5 days of - overlap therapy, the patient will need to be - assessed for post discharge needs including - *Post discharge parental anticoagulation - *Warfarin and/or parental anticoagulation education - *Follow up date to check INR post discharge At least 5 days overlap therapy as Inpatient No Meds if any: Prescribed or Continued at Discharge Note: Overlap Therapy is Warfarin and Anticoagulant Meds if any: NOT Prescribed or Continued at Discharge
--- NOTE | 2017-09-16 10:31 | PN- Cardiology ---
Subjective Subjective: The patient had recurrent chest pain overnight which she describes as a bandlike sensation across his chest. The pain did not initially respond to nitroglycerin glycerin and morphine, however eventually resolved after approximately a hour. He is currently pain-free. No shortness of breath. No diaphoresis. No palpitations. No nausea or vomiting. No lightheadedness or dizziness. Objective Vital Signs and I&Os Vital Signs Date Time Temp Pulse Resp B/P B/P Pulse O2 O2 Flow FiO2 Mean Ox Delivery Rate 09/16 08 97 Nasal 2.0L Cannula 09/16 0641 97.7 63 18 152/76 96 Room Air 09/16 0000 Nasal Cannula 09/15 2201 97.9 62 18 160/90 97 09/15 1816 97.7 65 18 184/92 98 Room Air 09/15 1631 98.1 64 18 182/90 98 Room Air 09/15 1604 98.3 69 20 166/82 97 Room Air 09/15 1434 98.0 60 18 170/80 97 Room Air 09/15 1432 98.0 60 18 170/80 09/15 1354 97 Room Air 09/15 1341 97.6 59 18 184/81 97 Room Air 09/15 1205 98.3 60 18 172/75 97 Intake & Output 09/16 1600 09/16 0800 09/16 0000 09/15 1600 09/15 0800 09/15 0000 Intake Total 60 200 720 0 Output Total 425 Balance -365 200 720 0 Intake, Oral 60 200 720 0 Output, Urine 425 Patient 220 lb 220 lb 220 lb Weight Physical Exam: Gen: The patient is in no acute distress HEENT: Normal nose, ears, and oropharynx. Pupils equal bilaterally. Conjunctiva normal. Neck: Supple with no JVD, no masses, and no thyromegaly Lungs: Clear to auscultation with normal respiratory effort Heart: RRR, S1, S2, no murmurs. No peripheral edema, 2+ pulses in the lower extremities bilaterally Abdomen: Soft, nontender, no masses. No hepatomegaly. No splenomegaly Extremities: No clubbing or cyanosis. Normal muscle strength in the upper and lower extremities Skin: Normal skin turgor with no skin ulcers or lesions noted. Neuro: Cranial nerves intact. Sensation intact Psych: Alert and oriented 3 with appropriate affect Current Medications: Current Medications Sig/Nadir Start time Last Medication Dose Route Stop Time Status Admin Acetaminophen 650 MG Q6P PRN 09/15 1300 AC 09/16 PO 0637 Acetaminophen 1,000 MG Q6P PRN 09/15 1300 AC 09/16 IV 0054 Aspirin Buffered 81 MG DAILY 09/16 1000 AC PO Atorvastatin Calcium 80 MG 1700 09/16 0300 AC 09/16 PO 0618 Atorvastatin Calcium 10 MG 1700 09/15 1700 AC 09/15 PO 1735 Enoxaparin Sodium 40 MG DAILY 09/16 1000 CAN SC Heparin Sodium 3,000 UNIT ONCE ONE 09/16 1400 AC (Porcine) IV 09/16 1401 Heparin Sodium 25,000 UNIT Q24H 09/16 0300 AC 09/16 (Porcine) IV 0359 Sodium Chloride 500 ML Lisinopril 10 MG DAILY 09/15 1330 AC 09/15 PO 1432 Metoprolol Succinate 100 MG DAILY 09/15 1153 DC PO Metoprolol Tartrate 50 MG BID 09/15 1329 AC 09/15 PO 2308 Morphine Sulfate 2 MG ONCE ONE 09/16 0300 DC 09/16 IV 09/16 0301 0323 Morphine Sulfate 2 MG Q4P PRN 09/15 1300 AC IV Nitroglycerin 0.4 MG Q6 09/15 2359 CAN SL Nitroglycerin 0.5 GM Q6 09/15 2359 AC 09/16 TOP 0619 Nitroglycerin 0.5 GM Q6 09/15 1800 CAN TOP Nitroglycerin 1 GM ONCE ONE 09/15 1615 DC 09/15 TOP 09/15 1616 1605 Nitroglycerin 0 .STK-MED ONE 09/15 1602 DC TOP Nitroglycerin 0.4 MG ONCE ONE 09/15 1545 DC 09/15 SL 09/15 1546 1548 Nitroglycerin 0.4 MG Q6 PRN 09/15 1315 DC SL Omeprazole 20 MG DAILY AC PRN 09/15 1315 AC PO Results Last 48 Hrs of Labs/Mics: Laboratory Tests 09/16/17 0926: Troponin I Cancelled 09/16/17 0830: Troponin I Cancelled 09/16/17 0632: Anion Gap 11, Estimated GFR > 60, BUN/Creatinine Ratio 23.8, Troponin I 0.36 *H, APTT 48 H, CBC w Diff NO MAN DIFF REQ, RBC 4.61 L, MCV 95.0 H, MCH 31.6 H, RDW 13.8, MPV 8.6, Gran % 79.7 H, Lymphocytes % 13.4 L, Monocytes % 6.0, Eosinophils % 0.6, Basophils % 0.3, Absolute Granulocytes 9.3 H, Absolute Lymphocytes 1.6, Absolute Monocytes 0.7 H, Absolute Eosinophils 0.1, Absolute Basophils 0, PUBS MCHC 33.3 09/16/17 0245: Troponin I 0.14 *H 09/16/17 0217: Troponin I Cancelled 09/15/17 2245: Troponin I 0.15 *H 09/15/17 1332: Troponin I 0.10 09/15/17 0635: Anion Gap 10, Estimated GFR > 60, BUN/Creatinine Ratio 23.3, Glucose 128 H, Calcium 8.7, Total Bilirubin 0.5, AST 47, ALT 53, Alkaline Phosphatase 209 H, Troponin I 0.07, [id number] Pept 368 H, Total Protein 6.5, Albumin 3.6, Globulin 2.9, Albumin/Globulin Ratio 1.2, PT 11.4, INR 1.09, APTT 31, D-Dimer High Sensitivty < 200, CBC w Diff NO MAN DIFF REQ, RBC 4.57 L, MCV 94.1 H, MCH 31.5 H, RDW 13.3, MPV 8.1, Gran % 76.8 H, Lymphocytes % 14.1 L, Monocytes % 6.7, Eosinophils % 2.1, Basophils % 0.3, Absolute Granulocytes 6.1, Absolute Lymphocytes 1.1 L, Absolute Monocytes 0.5, Absolute Eosinophils 0.2, Absolute Basophils 0, PUBS MCHC 33.5 Recent Imaging Studies: Chest x-ray: The lungs are well expanded. There is no consolidation, edema, or effusion. No pneumothorax. The cardiomediastinal silhouette is unchanged, with a tortuous and calcified aorta. Scoliotic curvature of the spine. EKG today reveals normal sinus rhythm at 61 with first-degree AV block, septal infarct age undetermined, ST depression in the anterior leads consistent with ischemia Assessment/Plan Assessment/Plan Assessment: 1. CAD, status post RCA stent in 1999 2. Hypertension 3. Hyperlipidemia 4. Chest pain with ST depression and positive troponin, suggestive of NSTEMI Recommendations: * Transfer to [facility] for cardiac catheterization and possible revascularization with Dr. Tuohy * Continue IV heparin. Hold heparin pick[employer] to labor and delivery nurse. * Continue aspirin. Brilinta will be added at the time of percutaneous intervention * Continue atorvastatin. * Continue metoprolol * Increase lisinopril to 20 mg daily for additional blood pressure control Continue telemetry? Yes
[2017-09-16] MEDS ORDERED: ATORVASTATIN CA80 M1 PO (10:59)
[2017-09-16] MEDS ORDERED: NITRO-BID1 GM TOP (10:59)
[2017-09-16] MEDS ORDERED: OMEPRAZOLE20 M2 PO (10:59)
[2017-09-16] MEDS ORDERED: METOPROLOL TART50 M1 PO (10:59)
[2017-09-16] MEDS ORDERED: LISINOPRIL10 M1 PO (10:59)
[2017-09-16 11:10] VITALS: BP 142/68
[2017-09-16] MEDS ORDERED: HEPARIN 2,2500 UNIT/ IV ×2 (11:12→11:53)
[2017-09-16 11:16] VITALS: BP 142/68
--- NOTE | 2017-09-16 12:01 | ECHOCARDIOGRAM REPORT ---
ISIS CANTU Age: 82 : 1935 Gender: M Exam Date: 09/15/2017 20:09 Exam Location: ER Ht (in): 69 Wt (lb): 220 BSA: 2.24 BP: 184 / 92 Ordering Physician: Jhonathan Spear MD Referring Physician: Jhonathan Spear MD Technologist: Yudy Peña RDCS Room Number: [id number] Indications: CHEST PAIN Rhythm: Sinus Technical Quality: Good FINDINGS Left Ventricle Normal size left ventricle. Normal left ventricular wall thickness. Normal left ventricular ejection fraction visually estimated at > 60%. Normal left ventricular wall motion. Right Ventricle Normal right ventricular size and function. Right Atrium Normal right atrial size. Left Atrium Normal left atrial size. Mitral Valve Mitral valve thickened. Mild mitral annular calcification. Mild mitral regurgitation. Aortic Valve Diffuse thickening (sclerosis) of the aortic valve cusps without reduced excursion. No aortic stenosis. Mild aortic regurgitation. Tricuspid Valve Tricuspid valve not well visualized, grossly normal. Trace tricuspid regurgitation. Right ventricular systolic pressure estimated to be elevated at 55 mmHg. Pulmonic Valve Pulmonic valve not well visualized, grossly normal. Pericardium No pericardial effusion. Great Vessels Normal size aortic root and proximal ascending aorta. CONCLUSIONS Normal left ventricular ejection fraction visually estimated at > 60%. Mild mitral regurgitation. Mild aortic regurgitation. Trace tricuspid regurgitation. Right ventricular systolic pressure estimated to be elevated at 55 mmHg. Jhonathan Spear M.D. (Electronically Signed) Final Date: 16 September 2017 12:00 MEASUREMENTS (Male / Female) Normal Values 2D ECHO LV Diastolic Diameter PLAX 3.8 cm 4.2 - 5.9 / 3.9 - 5.3 cm LV Systolic Diameter PLAX 1.7 cm 2.1 - 4.0 cm LV Fractional Shortening PLAX 55.3 % 25 - 46 % LV Ejection Fraction 2D Teich 86.5 % IVS Diastolic Thickness 0.8 cm LVPW Diastolic Thickness 0.9 cm LV Relative Wall Thickness 0.4 RV Internal Dim ED PLAX 3.1 cm 1.9 - 3.8 cm LVOT Diameter 1.9 cm Aortic Root Diameter 2.7 cm LA Systolic Diameter LX 3.6 cm 3.0 - 4.0 / 2.7 - 3.8 cm LA Volume 34.0 cm 18 - 58 / 22 - 52 cm Ascending Aorta Diameter 3.1 cm DOPPLER AV Peak Velocity 125.0 cm/s AV Peak Gradient 6.3 mmHg AV Mean Velocity 86.9 cm/s AV Mean Gradient 4.0 mmHg AV Velocity Time Integral 27.7 cm LVOT Peak Velocity 93.2 cm/s LVOT Peak Gradient 3.5 mmHg LVOT Mean Velocity 61.5 cm/s LVOT Mean Gradient 2.0 mmHg LVOT Velocity Time Integral 20.8 cm LVOT Stroke Volume 59.0 cm AV Area Cont Eq vti 2.1 cm AV Area Cont Eq pk 2.1 cm MV Peak Velocity 104.0 cm/s MV Peak Gradient 4.3 mmHg MV Mean Velocity 56.3 cm/s MV Mean Gradient 2.0 mmHg Mitral E Point Velocity 108.0 cm/s Mitral A Point Velocity 57.8 cm/s Mitral E to A Ratio 1.9 MV PHT Velocity 113.0 cm/s MV Deceleration [place] 452.0 cm/s MV Pressure Half Time 75.0 ms MV Area PHT 2.9 cm MV Deceleration Time 201.0 ms TR Peak Velocity 356.0 cm/s TR Peak Gradient 50.7 mmHg Right Atrial Pressure 5.0 mmHg Pulmonary Artery Systolic Pressu 55.7 mmHg Right Ventricular Systolic Press 55.7 mmHg PV Peak Velocity 116.0 cm/s PV Peak Gradient 5.4 mmHg PV Mean Velocity 84.1 cm/s PV Mean Gradient 3.0 mmHg PV Velocity Time Integral 27.8 cm LV E' Lateral Velocity 8.7 cm/s Mitral E to LV E' Lateral Ratio 12.4 LV E' Septal Velocity 5.8 cm/s Mitral E to LV E' Septal Ratio 18.8
== END 2017-09-16 12:40 | disposition short-term general hospital (02) ==
LOC: ERH 06:01 → 1NO 09:22 → ERHI 09:22 → ENRESERV 18:39 → ENTRNSPT 19:53 → EDTRNSPT 20:02 → EDTRNSPTSTS 20:28 → 1NO 20:48 → CMPTRNSPT 20:58 → ENPENDDIS 09-16 11:54 → 1NO 09-16 12:40
PROVIDERS: Pediatrics; Specialist; Student in an Organized Health Care Education/Training Program
DX: I21.4 Non-ST elevation (NSTEMI) myocardial infarction (principal); I25.10 Atherosclerotic heart disease of native coronary artery without angina pectoris; Z95.5 Presence of coronary angioplasty implant and graft; K21.9 Gastro-esophageal reflux disease without esophagitis; I10 Essential (primary) hypertension; E78.5 Hyperlipidemia, unspecified; G47.33 Obstructive sleep apnea (adult) (pediatric); I44.0 Atrioventricular block, first degree; Z79.82 Long term (current) use of aspirin; R06.00 Dyspnea, unspecified
CPT/HCPCS: 1328; 1530; 1748; 6020; 36415; 71045; 82436; 93005; 93010; 93306; 96374; 96375; G0378; J0131; J1644; J1650; J3490